=== PATIENT | female | born 1950 | race Caucasian/White ===

== ENCOUNTER 2017-06-28 11:55 | Observation (INO) | payer OTHER ==
[~2017-06-28] VITALS: Ht 162.6 cm; Wt 81.8 kg
[~2017-06-28 11:55] MED LIST: ANAS1TAB PO; CITRTAB13; MULT-135 PO; MULT1TAB46; PROP80TA PO; RANI150C PO; SIMV40TA PO; SUMA50TA2 PO; VENL150C39 PO
--- NOTE | 2017-06-28 13:10 | PD ---
HPI Chief Complaint: dizziness Time Seen by Provider: 13:07 Travel History International Travel<30 days: No Contact w/Intl Traveler<30days: No Traveled to known affect area: No History of Present Illness HPI 67-year-old female with history of headache, occipital neuralgia, or thyroidectomy, hypertension, "fast heart rate", presents to emergency department for evaluation following a near syncopal episode while at the primary care provider's office. She was being seen there for evaluation of left lower extremity pain. Outpatient ultrasound and x-ray was recommended. While TORIN Domingo was with the patient, patient became acutely diaphoretic and lids advised to come to the emergency department. When the patient got up to leave and come by private vehicle, she nearly syncopized. She did not completely lose consciousness. She was put on the stretcher and [facility] was called. Patient states that she drank juice and coffee this morning and took a Lortab because she knew she was going to be up walking on her left lower extremity. She states she has taken Lortab in the past and this is never affected her this way. She denied chest pain or tightness during it. She states she did feel little bit of a palpitation but it resolved prior to the episode. She has no other symptoms to report. Her museum guide is Dr. Herrera who follows her for her "fast heart rate." [facility]LY [facility] Past Medical History Cardiovascular Problems: Yes (high cholesterol) Diminished Hearing: No Gout: Yes Immunizations Current: Yes Thyroid Disease: Yes Menopausal: Yes Past Surgical History Other Surgery: Yes (PARATHYROID SX IN DEC 2014) Social History Alcohol Use: Yes (5x weekly) Tobacco Use: No Substance Use: No Allergies-Medications (Allergen,Severity, Reaction): Coded Allergies: No Known Allergies (Unverified , 06/28/17) Reported Meds & Prescriptions Reported Meds & Active Scripts Active Simvastatin 40 Mg Tab 40 Mg PO HS Ranitidine (Ranitidine HCl) 150 Mg Cap 150 Mg PO DAILY Venlafaxine ER 24 HR (Venlafaxine HCl) 150 Mg Cap 150 Mg PO DAILY Reported Multi Vitamin Daily (Multiple Vitamin) 1 Tab Tab Anastrozole 1 Mg Tab 1 Mg PO DAILY Citracal Plus (Multiple Minerals W/ Vitamins) 1 Tab Tab Sumatriptan (Sumatriptan Succinate) 50 Mg Tab 50 Mg PO ONCE PRN If a satisfactory response has not been obtained at 2 hours, a second dose may be administered Propranolol (Propranolol HCl) 80 Mg Tab 80 Mg PO Q12HR Review of Systems Except as stated in HPI: all other systems reviewed are Neg Physical Exam Narrative GENERAL: Well-nourished female patient, in no acute distress SKIN: Focused skin assessment warm/dry. Scattered scabbed lesions with mild erythematous bases. No drainage. No significant edema. HEAD: Atraumatic. Normocephalic. EYES: Pupils equal and round. No scleral icterus. No injection or drainage. ENT: No nasal bleeding or discharge. Mucous membranes pink and moist. NECK: Trachea midline. No JVD. CARDIOVASCULAR: Regular rate and rhythm. RESPIRATORY: No accessory muscle use. Clear to auscultation. Breath sounds equal bilaterally. GASTROINTESTINAL: Abdomen soft, non-tender, nondistended. Hepatic and splenic margins not palpable. MUSCULOSKELETAL: No obvious deformities. No clubbing. No cyanosis. No edema. NEUROLOGICAL: Awake and alert. No obvious cranial nerve deficits. Motor grossly within normal limits. Normal speech. PSYCHIATRIC: Appropriate mood and affect; insight and judgment normal. Data Data Orders Orders Electrocardiogram (06/28/17 13:13) Basic Metabolic Panel (Bmp) (06/28/17 13:13) Complete Blood Count With Diff (06/28/17 13:13) Ckmb (Isoenzyme) Profile (06/28/17 13:13) Troponin I (06/28/17 13:13) Act Partial Throm Time (Ptt) (06/28/17 13:13) Prothrombin Time / Inr (Pt) (06/28/17 13:13) Urinalysis - C+S If Indicated (06/28/17 13:13) Chest, Single Ap (06/28/17 13:13) Ecg Monitoring (06/28/17 13:13) Iv Access Insert/Monitor (06/28/17 13:13) Oximetry (06/28/17 13:13) Sodium Chloride 0.9% Flush (Ns Flush) (06/28/17 13:15) Sodium Chlor 0.9% 1000 Ml Inj (Ns 1000 M (06/28/17 13:13) Us Leg Venous Doppler (06/28/17 ) Urine Culture (06/28/17 14:05) Admit Order (Ed Use Only) (06/28/17 16:04) Ceftriaxone Inj (Rocephin Inj) (06/28/17 16:15) Labs Laboratory Tests Test 06/28/17 13:50 06/28/17 13:55 06/28/17 14:05 White Blood Count 8.6 TH/MM3 Red Blood Count 3.98 MIL/MM3 Hemoglobin 11.9 GM/DL Hematocrit 36.8 % Mean Corpuscular Volume 92.5 FL Mean Corpuscular Hemoglobin 29.8 PG Mean Corpuscular Hemoglobin Concent 32.2 % Red Cell Distribution Width 13.1 % Platelet Count 282 TH/MM3 Mean Platelet Volume 8.4 FL Neutrophils (%) (Auto) 74.3 % Lymphocytes (%) (Auto) 19.7 % Monocytes (%) (Auto) 4.5 % Eosinophils (%) (Auto) 1.1 % Basophils (%) (Auto) 0.4 % Neutrophils # (Auto) 6.4 TH/MM3 Lymphocytes # (Auto) 1.7 TH/MM3 Monocytes # (Auto) 0.4 TH/MM3 Eosinophils # (Auto) 0.1 TH/MM3 Basophils # (Auto) 0.0 TH/MM3 CBC Comment DIFF FINAL Differential Comment Blood Urea Nitrogen 15 MG/DL Creatinine 1.04 MG/DL Random Glucose 100 MG/DL Calcium Level 8.5 MG/DL Sodium Level 141 MEQ/L Potassium Level 3.9 MEQ/L Chloride Level 108 MEQ/L Carbon Dioxide Level 26.7 MEQ/L Anion Gap 6 MEQ/L Estimat Glomerular Filtration Rate 53 ML/MIN Total Creatine Kinase 57 U/L Troponin I LESS THAN 0.02 NG/ML Prothrombin Time 10.7 SEC Prothromb Time International Ratio 1.0 RATIO Activated Partial Thromboplast Time 24.0 SEC Urine Color YELLOW Urine Turbidity HAZY Urine pH 7.5 Urine Specific [place] 1.012 Urine Protein NEG mg/dL Urine Glucose (UA) NEG mg/dL Urine Ketones NEG mg/dL Urine Occult Blood NEG Urine Nitrite POS Urine Bilirubin NEG Urine Urobilinogen LESS THAN 2.0 MG/DL Urine Leukocyte Esterase MOD Urine RBC LESS THAN 1 /hpf Urine WBC 7 /hpf Urine Amorphous Sediment FEW Urine Bacteria MANY /hpf Microscopic Urinalysis Comment CULTURE INDICATED MDM Medical Decision Making Medical Screen Exam Complete: Yes Emergency Medical Condition: Yes Medical Record Reviewed: Yes Differential Diagnosis Syncope versus near-syncope versus medication side effect versus electrolyte abnormality versus arrhythmia Narrative Course 67-year-old female presents to emergency department for evaluation. Patient appears without distress. She is still mildly diaphoretic. Her vital signs are stable. She is not having chest pain or tightness. Laboratory Tests Test 06/28/17 13:50 06/28/17 13:55 06/28/17 14:05 White Blood Count 8.6 TH/MM3 Red Blood Count 3.98 MIL/MM3 Hemoglobin 11.9 GM/DL Hematocrit 36.8 % Mean Corpuscular Volume 92.5 FL Mean Corpuscular Hemoglobin 29.8 PG Mean Corpuscular Hemoglobin Concent 32.2 % Red Cell Distribution Width 13.1 % Platelet Count 282 TH/MM3 Mean Platelet Volume 8.4 FL Neutrophils (%) (Auto) 74.3 % Lymphocytes (%) (Auto) 19.7 % Monocytes (%) (Auto) 4.5 % Eosinophils (%) (Auto) 1.1 % Basophils (%) (Auto) 0.4 % Neutrophils # (Auto) 6.4 TH/MM3 Lymphocytes # (Auto) 1.7 TH/MM3 Monocytes # (Auto) 0.4 TH/MM3 Eosinophils # (Auto) 0.1 TH/MM3 Basophils # (Auto) 0.0 TH/MM3 CBC Comment DIFF FINAL Differential Comment Blood Urea Nitrogen 15 MG/DL Creatinine 1.04 MG/DL Random Glucose 100 MG/DL Calcium Level 8.5 MG/DL Sodium Level 141 MEQ/L Potassium Level 3.9 MEQ/L Chloride Level 108 MEQ/L Carbon Dioxide Level 26.7 MEQ/L Anion Gap 6 MEQ/L Estimat Glomerular Filtration Rate 53 ML/MIN Total Creatine Kinase 57 U/L Troponin I LESS THAN 0.02 NG/ML Prothrombin Time 10.7 SEC Prothromb Time International Ratio 1.0 RATIO Activated Partial Thromboplast Time 24.0 SEC Urine Color YELLOW Urine Turbidity HAZY Urine pH 7.5 Urine Specific [place] 1.012 Urine Protein NEG mg/dL Urine Glucose (UA) NEG mg/dL Urine Ketones NEG mg/dL Urine Occult Blood NEG Urine Nitrite POS Urine Bilirubin NEG Urine Urobilinogen LESS THAN 2.0 MG/DL Urine Leukocyte Esterase MOD Urine RBC LESS THAN 1 /hpf Urine WBC 7 /hpf Urine Amorphous Sediment FEW Urine Bacteria MANY /hpf Microscopic Urinalysis Comment CULTURE INDICATED Last Impressions Chest X-Ray 06/28/17 1313 Signed Impressions: Service Date/Time: June 13:26 - CONCLUSION: 1. Hiatal hernia. Exam is otherwise unremarkable. Prasanna Correia MD Lower Extremity Ultrasound 06/28/17 0000 Signed Impressions: Service Date/Time: June 14:33 - CONCLUSION: 1. No DVT identified. Prasanna Correia MD Review the lab findings and radiology images. Patient will be started on oral antibiotics. I discussed the patient with my attending. I also discussed patient with lives to assess her today. Did not see with the patient has had cardiac workup here. She does not recall ultrasound of her carotids, echocardiogram, or any significant cardiac workup. It is in the patient's best interest to be admitted observation for further evaluation of these symptoms. Diagnosis Primary Impression: Near syncope Additional Impressions: UTI (urinary tract infection) Qualified Codes: N39.0 - Urinary tract infection, site not specified; R31.9 - Hematuria, unspecified Skin lesions Admitting Information Admitting Physician Requests: Observation Condition: Stable Fabiana Berger Jun 28, 2017 13:10
[2017-06-28] MEDS ORDERED: SODIUM CHLOR 0.9% 1000 ML INJ 1,000 ML IV ONE (13:13)
[2017-06-28] MEDS ORDERED: SODIUM CHLORIDE 0.9% FLUSH 10 ML FLUSH IVF PRN (13:15)
--- NOTE | 2017-06-28 13:48 | RADRPT ---
EXAM DATE/TIME: 06/28/2017 13:26 [facility] COMPARISON: FOOT RIGHT COMPLETE ([id number]), September 28, 2015, 3:58. INDICATIONS : Shortness of breath. MEDICAL HISTORY : Hypercholesterolemia. Carcinoma, breast. SURGICAL HISTORY : Mastectomy, bilateral. ENCOUNTER: Initial ACUITY: 2 days PAIN SCORE: 0/10 LOCATION: Bilateral chest FINDINGS: A single view of the chest demonstrates the lungs to be symmetrically aerated without evidence of mas s, infiltrate or effusion. The examination demonstrates a small hiatal hernia. The cardiomediastinal contours are unremarkable. Osseous structures are intact. CONCLUSION: 1. Hiatal hernia. Exam is otherwise unremarkable. Prasanna Correia MD on June 28, 2017 at 13:44 Board Certified Radiologist. This report was verified electronically.
[2017-06-28 14:13] LABS: AUTOMATED NEUTROPHIL # 6.4 TH/MM3 (1.8-7.7); BASOPHIL % 0.4 % (0.0-2.0); EOSINOPHIL # 0.1 TH/MM3 (0-0.4); EOSINOPHIL % 1.1 % (0.0-4.0); HEMATOCRIT 36.8 % (35.0-46.0); HEMO FLAGS DIFF FINAL; LYMPH % 19.7 % (9.0-44.0); LYMPHOCYTE # 1.7 TH/MM3 (1.0-4.8); MEAN CELL VOLUME 92.5 FL (80.0-100.0); MEAN CORPUSCULAR HEMOGLOBIN 29.8 PG (27.0-34.0); MEAN CORPUSCULAR HGB CONC 32.2 % (32.0-36.0); MONO % 4.5 % (0.0-8.0); NEUT % 74.3 % (16.0-70.0); PLATELET COUNT 282 TH/MM3 (150-450); RED BLOOD COUNT 3.98 MIL/MM3 (4.00-5.30); RED CELL DISTRIBUTION WIDTH 13.1 % (11.6-17.2); WHITE BLOOD COUNT 8.6 TH/MM3 (4.0-11.0)
[2017-06-28 14:17] LABS: BACTERIA, URINE MANY /hpf; BLOOD, URINE NEG (NEG); GLUCOSE,URINE NEG (NEG); KETONE, URINE NEG (NEG); NITRITE,URINE POS (NEG); PH, URINE 7.5 (5.0-8.5); URINE COLOR YELLOW (YELLW/STRAW)
[2017-06-28 14:18] LABS: COMMENT (UR) CULTURE INDICATED; CULTURE IF INDICATED CULTURE INDICATED
[2017-06-28 14:28] LABS: PROTHROMBIN TIME - PATIENT 10.7 SEC (9.8-11.6)
[2017-06-28 14:38] LABS: ANION GAP 6 MEQ/L (5-15); BICARBONATE 26.7 MEQ/L (21.0-32.0); BLOOD UREA NITROGEN 15 MG/DL (7-18); CHLORIDE 108 MEQ/L (98-107); GLOMERULAR FILTRATION RATE 53 ML/MIN (>89); POTASSIUM 3.9 MEQ/L (3.5-5.1); SODIUM (NA) 141 MEQ/L (136-145)
[2017-06-28 14:52] LABS: CREATINE KINASE 57 U/L (26-192)
--- NOTE | 2017-06-28 15:14 | RADRPT ---
EXAM DATE/TIME: 06/28/2017 14:33 [facility] COMPARISON: No previous studies available for comparison. INDICATIONS : Left leg swelling. MEDICAL HISTORY : Hypercholesterolemia. Thyroid disease. Renal calculi. Gout. Alcohol use. Occipital neuralgia. SURGICAL HISTORY : Mastectomy. Left breast lumpectomy. Lithotripsy. Breast biopsy x 2. Sinus septoplasty. Parathyroid tu mor removal. ENCOUNTER: Initial ACUITY: 1 day PAIN SCORE: 3/10 LOCATION: Left leg. TECHNIQUE: Venous ultrasound of the leg was performed from the inguinal ligament to the proximal calf. Real-marisela e, color Doppler and spectral tracing, compression and augmentation techniques were used. FINDINGS: There is normal compressibility of the deep venous system from the inguinal region to the proximal ca lf. No echogenic clot is seen in the lumen of the common femoral, femoral, popliteal, and posterior tibial veins. There is a normal response of the venous system to proximal and distal augmentation an d respiration. CONCLUSION: 1. No DVT identified. Prasanna Correia MD on June 28, 2017 at 15:12 Board Certified Radiologist. This report was verified electronically.
[2017-06-28] MEDS ORDERED: SODIUM CHLORIDE 0.9% FLUSH 10 ML FLUSH IV FLUSH PRN ×2 (16:15→17:15)
[2017-06-28] MEDS ORDERED: cefTRIAXone INJ 1,000 MG in SODIUM CHLORIDE 0.9% INJ 100 ML IV ONE (16:15)
[2017-06-28 16:34] VITALS: BP 109/76; PULSE 66; RESP 20
--- NOTE | 2017-06-28 17:18 | HHI.HP ---
[facility] Mirian Garcia MD Admission Diagnosis NEAR SYNCOPE; UTI Diagnoses: Chief Complaint: Near syncope Travel History International Travel<30 Days: No Contact w/Intl Traveler <30 Da: No Traveled to Known Affected Are: No History of Present Illness 67-year-old female with past medical history of palpitations, breast cancer, HLD , migraines, depression, GERD who presented after a near syncopal episode. The patient states that she's been having issues with left knee pain. She is going to see her PCP today and while at her PCPs office she had a near-syncopal episode. She was sitting at her PCPs office she began having sweating, diaphoresis, palpitations. She laid down and began to feel better, but whenever she sat up she felt faint like she was going to pass out. She denies any lightheadedness, dizziness, chest pain, shortness of breath. She's had some sinus congestion and reflux, however denies any recent illness, fever, chills, cough, nausea, vomiting, diarrhea. She denies any recent medication changes. She does have a history of palpitations and has had a Holter monitor in the past with Dr. Herrera, however palpitations have been well-managed since being started on propranolol sometime ago. She denies any dysuria or urinary frequency. Review of Systems Except as stated in HPI: all other systems reviewed are Neg Past Family Social History Past Medical History History of breast cancer Hyperlipidemia History of palpitations Migraines Depression GERD Past Surgical History EGD/colonoscopy Multiple breast surgeries; biopsies, lumpectomy, and bilateral mastectomy Parathyroid tumor removal Reported Medications Reported Meds & Active Scripts Active Simvastatin 40 Mg Tab 40 Mg PO HS Ranitidine (Ranitidine HCl) 150 Mg Cap 150 Mg PO DAILY Venlafaxine ER 24 HR (Venlafaxine HCl) 150 Mg Cap 150 Mg PO DAILY Reported Multi Vitamin Daily (Multiple Vitamin) 1 Tab Tab Anastrozole 1 Mg Tab 1 Mg PO DAILY Citracal Plus (Multiple Minerals W/ Vitamins) 1 Tab Tab Sumatriptan (Sumatriptan Succinate) 50 Mg Tab 50 Mg PO ONCE PRN If a satisfactory response has not been obtained at 2 hours, a second dose may be administered Propranolol (Propranolol HCl) 80 Mg Tab 80 Mg PO Q12HR Allergies: Coded Allergies: No Known Allergies (Unverified , 06/28/17) Active Ordered Medications Current Medications Medications (Trade) Dose Ordered Sig/Brigette Route Start Time Stop Time Status Last Admin (NS Flush) 2 ml UNSCH PRN IV FLUSH 06/28/17 16:15 (NS Flush) 2 ml BID IV FLUSH 06/28/17 21:00 (Arimidex) 1 mg DAILY PO 06/29/17 09:00 UNV (Inderal) 80 mg Q12HR PO 06/28/17 21:00 UNV Non-Formulary Medication 150 mg DAILY PO 06/29/17 09:00 UNV Non-Formulary Medication 40 mg HS PO 06/28/17 21:00 UNV Sodium Chloride 1,000 ml @ 100 mls/hr Q10H IV 06/28/17 17:08 UNV (NS Flush) 2 ml UNSCH PRN IV FLUSH 06/28/17 17:15 UNV (NS Flush) 2 ml BID IV FLUSH 06/28/17 21:00 UNV Family History Father of bladder cancer Mother of dementia Social History Has 3 or 4 drinks per week Denies any tobacco or drug use Physical Exam Vital Signs Vital Signs Date Time Temp Pulse Resp B/P (MAP) Pulse Ox O2 Delivery O2 Flow Rate FiO2 06/28/17 16:34 66 20 109/76 (87) Physical Exam GENERAL: Well-developed well-nourished. In no acute distress. SKIN: Warm and dry. Few diffuse erythematous papules on the extremities. HEENT: Normocephalic. Pupils equal and round. Mucous membranes pink and moist. CARDIOVASCULAR: Regular rate and rhythm. No murmur appreciated. RESPIRATORY: No accessory muscle use. Clear to auscultation. Breath sounds equal bilaterally. GASTROINTESTINAL: Abdomen soft, non-tender, nondistended. Bowel sounds x4. MUSCULOSKELETAL: No obvious deformities. Left knee with no significant swelling , tenderness, erythema, or effusion. No clubbing or cyanosis. No edema. NEUROLOGICAL: Awake and alert. No focal neurological deficits. Moves upper and lower extremities spontaneously. Normal speech. Strength 5/5. PSYCHIATRIC: Appropriate mood and affect; insight and judgment normal. Laboratory Laboratory Tests Test 06/28/17 13:50 06/28/17 13:55 06/28/17 14:05 White Blood Count 8.6 Red Blood Count 3.98 Hemoglobin 11.9 Hematocrit 36.8 Mean Corpuscular Volume 92.5 Mean Corpuscular Hemoglobin 29.8 Mean Corpuscular Hemoglobin Concent 32.2 Red Cell Distribution Width 13.1 Platelet Count 282 Mean Platelet Volume 8.4 Neutrophils (%) (Auto) 74.3 Lymphocytes (%) (Auto) 19.7 Monocytes (%) (Auto) 4.5 Eosinophils (%) (Auto) 1.1 Basophils (%) (Auto) 0.4 Neutrophils # (Auto) 6.4 Lymphocytes # (Auto) 1.7 Monocytes # (Auto) 0.4 Eosinophils # (Auto) 0.1 Basophils # (Auto) 0.0 CBC Comment DIFF FINAL Differential Comment Blood Urea Nitrogen 15 Creatinine 1.04 Random Glucose 100 Calcium Level 8.5 Sodium Level 141 Potassium Level 3.9 Chloride Level 108 Carbon Dioxide Level 26.7 Anion Gap 6 Estimat Glomerular Filtration Rate 53 Total Creatine Kinase 57 Troponin I LESS THAN 0.02 Prothrombin Time 10.7 Prothromb Time International Ratio 1.0 Activated Partial Thromboplast Time 24.0 Urine Color YELLOW Urine Turbidity HAZY Urine pH 7.5 Urine Specific [place] 1.012 Urine Protein NEG Urine Glucose (UA) NEG Urine Ketones NEG Urine Occult Blood NEG Urine Nitrite POS Urine Bilirubin NEG Urine Urobilinogen LESS THAN 2.0 Urine Leukocyte Esterase MOD Urine RBC LESS THAN 1 Urine WBC 7 Urine Amorphous Sediment FEW Urine Bacteria MANY Microscopic Urinalysis Comment CULTURE INDICATED Date/Time Source Procedure Growth Status 06/28/17 14:05 Urine Clean Catch Urine Culture Pending Received Result Diagram: 06/28/17 1350 06/28/17 1350 Imaging Last Impressions Chest X-Ray 06/28/17 1313 Signed Impressions: Service Date/Time: June 13:26 - CONCLUSION: 1. Hiatal hernia. Exam is otherwise unremarkable. Prasanna Correia MD Lower Extremity Ultrasound 06/28/17 0000 Signed Impressions: Service Date/Time: June 14:33 - CONCLUSION: 1. No DVT identified. MD Cyndie Bacai VTE Risk Assessment Caprini VTE Risk Assessment: Mod/High Risk (score >= 2) Caprini Risk Assessment Model Point Value = 1 Point Value = 2 Point Value = 3 Point Value = 5 Age 41-60 Minor surgery BMI > 25 kg/m2 Swollen legs Varicose veins or History of unexplained or recurrent spontaneous Oral contraceptives or hormone replacement Sepsis (< 1 month) Serious lung disease, including pneumonia (< 1 month) Abnormal pulmonary function Acute myocardial infarction Congestive heart failure (< 1 month) History of inflammatory bowel disease Medical patient at bed rest Age 61-74 Arthroscopic surgery Major open surgery (> 45 min) Laparoscopic surgery (> 45 min) Malignancy Confined to bed (> 72 hours) Immobilizing plaster cast Central venous access Age >= 75 History of VTE Family history of VTE Factor V Leiden Prothrombin [id number] Lupus anticoagulant Anticardiolipin antibodies Elevated serum homocysteine Heparin-induced thrombocytopenia Other congenital or acquired thrombophilia Stroke (< 1 month) Elective arthroplasty Hip, pelvis, or leg fracture Acute spinal cord injury (< 1 month) Prophylaxis Regimen Total Risk Factor Score Risk Level Prophylaxis Regimen 0-1 Low Early ambulation 2 Moderate Order ONE of the following: *Sequential Compression Device (SCD) *Heparin 5000 units SQ BID 3-4 Higher Order ONE of the following medications: *Heparin 5000 units SQ TID *Enoxaparin/Lovenox 40 mg SQ daily (WT < 150 kg, CrCl > 30 mL/min) *Enoxaparin/Lovenox 30 mg SQ daily (WT < 150 kg, CrCl > 10-29 mL/min) *Enoxaparin/Lovenox 30 mg SQ BID (WT < 150 kg, CrCl > 30 mL/min) AND/OR *Sequential Compression Device (SCD) 5 or more Highest Order ONE of the following medications: *Heparin 5000 units SQ TID (Preferred with Epidurals) *Enoxaparin/Lovenox 40 mg SQ daily (WT < 150 kg, CrCl > 30 mL/min) *Enoxaparin/Lovenox 30 mg SQ daily (WT < 150 kg, CrCl > 10-29 mL/min) *Enoxaparin/Lovenox 30 mg SQ BID (WT < 150 kg, CrCl > 30 mL/min) AND *Sequential Compression Device (SCD) Assessment and Plan Assessment and Plan 67-year-old female with past medical history of palpitations, breast cancer, HLD , migraines, depression, GERD who presented after a near syncopal episode Near syncope: Episode of sweating, diaphoresis, palpitations at PCPs office. Reviewed: EKG with RBBB and no significant ST or T-wave changes, rate 56. Initial troponin within normal limits. Creatinine 1.04, no previous labs for comparison. UA with evidence of UTI. Afebrile with no leukocytosis. -Monitor on telemetry. Consider Holter monitor at discharge and outpatient cardiology follow-up if no significant arrhythmias seen. Cardiology consult if significant arrhythmias are seen. -Check orthostatics -Trend troponins -IVF -Treat UTI as below Palpitations: Episode as above is not similar to previous palpitations. -Check TSH -Continue propranolol UTI: UA with evidence of UTI. -Continue empiric IV Rocephin and follow-up urine culture Dehydration: Creatinine 1.04, no previous labs for comparison. Possible YUMIKO. -IVF and follow-up BMP. Left knee pain: Chronic. Ultrasound negative for DVT. -Continue outpatient orthopedic follow-up next week Other chronic medical conditions include breast cancer, HLD, GERD, depression: Stable at this time and will continue home medications as indicated. DVT prophylaxis: SCDs Discussed Condition With Patient with at bedside, ED staff Attending Statement Patient denies any active dizziness at this time. Reports previously with slightly diaphoretic. No complaint of chest pain or shortness of breath. No significant dysuria frequency urgency. Will admit patient for near syncope and continue monitoring on telemetry. Patient has seen Dr. Herrera the past and will refer her to follow-up with her threat monitoring analyst. Obtain orthostatic blood pressure the morning. Encourage by mouth hydration. The exam, history, and the medical decision making described in the above note were completed with the assistance of the dictating practitioner. I reviewed and agree with the findings presented. I attest that I had a face-to face encounter with the patient on the same day and personally performed and documented my assessment and findings in the medical record. Nestor Perez Jun 28, 2017 17:18 Faviola Fowler MD Jun 28, 2017 19:44
[2017-06-28 17:43] VITALS: BP_SYST 112; BP_SYST 127; BP_DIAS 62; BP_DIAS 76; PULSE 79; RESP 18; TEMP 98.5; O2SAT 98
[2017-06-28 20:06] VITALS: BP_SYST 115; BP_SYST 125; BP_DIAS 63; BP_DIAS 65; PULSE 81; RESP 20; TEMP 98.5; O2SAT 96
[2017-06-28] MEDS: SODIUM CHLORIDE 0.9% FLUSH 10 ML FLUSH IV FLUSH SCH (20:20)
[2017-06-28] MEDS: PROPRANOLOL HCL 80 MG TAB PO SCH (20:21)
[2017-06-28] MEDS: SODIUM CHLOR 0.9% 1000 ML INJ 1,000 ML IV SCH (20:21)
[2017-06-28] MEDS: CEFUROXIME AXETIL 500 MG TAB PO SCH (20:22)
[2017-06-28 20:30] VITALS: PULSE 80; O2SAT 99
[2017-06-28] MEDS ORDERED: PRAVASTATIN SOD 80 MG TAB PO SCH (21:00)
[2017-06-28] MEDS ORDERED: SODIUM CHLORIDE 0.9% FLUSH 10 ML FLUSH IV FLUSH SCH (21:00)
[2017-06-29] VITALS (7 sets, daily range): BP systolic 105–125; BP diastolic 55–82; PULSE 67–80; RESP 16–20; TEMP 97.6–98.1; O2SAT 94–97
[2017-06-29 02:48] LABS: AUTOMATED NEUTROPHIL # 4.3 TH/MM3 (1.8-7.7); BASOPHIL % 0.5 % (0.0-2.0); EOSINOPHIL # 0.1 TH/MM3 (0-0.4); EOSINOPHIL % 1.9 % (0.0-4.0); HEMATOCRIT 32.5 % (35.0-46.0); HEMO FLAGS DIFF FINAL; LYMPH % 30.1 % (9.0-44.0); LYMPHOCYTE # 2.3 TH/MM3 (1.0-4.8); MEAN CELL VOLUME 91.8 FL (80.0-100.0); MEAN CORPUSCULAR HEMOGLOBIN 29.4 PG (27.0-34.0); MONO % 11.8 % (0.0-8.0); NEUT % 55.7 % (16.0-70.0); PLATELET COUNT 240 TH/MM3 (150-450); RED BLOOD COUNT 3.54 MIL/MM3 (4.00-5.30); RED CELL DISTRIBUTION WIDTH 13.2 % (11.6-17.2); WHITE BLOOD COUNT 7.7 TH/MM3 (4.0-11.0)
[2017-06-29 03:08] LABS: ANION GAP 8 MEQ/L (5-15); BLOOD UREA NITROGEN 18 MG/DL (7-18); CHLORIDE 111 MEQ/L (98-107); GLOMERULAR FILTRATION RATE 59 ML/MIN (>89); POTASSIUM 3.7 MEQ/L (3.5-5.1); SODIUM (NA) 145 MEQ/L (136-145)
[2017-06-29] MEDS: SODIUM CHLOR 0.9% 1000 ML INJ 1,000 ML IV SCH ×2 (05:59→12:55)
[2017-06-29] MEDS: SODIUM CHLORIDE 0.9% FLUSH 10 ML FLUSH IV FLUSH SCH (08:00)
[2017-06-29] MEDS: CEFUROXIME AXETIL 500 MG TAB PO SCH (08:01)
[2017-06-29] MEDS: PROPRANOLOL HCL 80 MG TAB PO SCH (08:08)
[2017-06-29] MEDS ORDERED: FAMOTIDINE 20 MG TAB PO SCH (09:00)
[2017-06-29] MEDS ORDERED: ANASTROZOLE 1 MG TAB PO SCH (09:00)
[2017-06-29] MEDS ORDERED: VENLAFAXINE HCL XR 75 MG CAP PO SCH (09:00)
--- NOTE | 2017-06-29 11:14 | EKG ---
Date Performed: 06/28/2017 Time Performed: 13:11:37 PTAGE: 67 years EKG: SINUS BRADYCARDIA BORDERLINE ECG INTERPRETATION BASED ON A DEFAULT AGE OF 40 YEARS NO PREVIOUS TRACING DOCTOR: Conrad Sullivan Interpretating Date/Time 06/29/2017 11:12:59
[2017-06-29] MEDS ORDERED: NITROFURANTOIN MONOHYD MACROCR 100 MG CAP PO SCH (13:00)
--- NOTE | 2017-06-29 13:05 | HHI.PR ---
Subjective Remarks Follow-up for her syncopal episode. The patient then did well overnight. She denies any further episodes. She denies any chest pain, shortness of breath, palpitations, lightheadedness, dizziness. She has been able to ambulate, but with her knee pain, she is requesting a walker. Telemetry unremarkable. The patient is happy to go home today and follow-up with her PCP next week. Objective Vitals Vital Signs Date Time Temp Pulse Resp B/P (MAP) Pulse Ox O2 Delivery O2 Flow Rate FiO2 06/29/17 12:09 97.6 80 16 122/68 (86) 97 06/29/17 08:11 97.6 70 16 122/60 (80) 97 124/78 (93) 125/82 (96) 06/29/17 08:00 73 06/29/17 04:05 67 06/29/17 04:02 97.9 69 18 105/55 (72) 94 06/29/17 00:42 98.1 73 20 108/62 (77) 96 06/29/17 00:35 69 06/28/17 20:30 99 06/28/17 20:30 80 06/28/17 20:06 98.5 81 20 125/65 (85) 96 115/63 (80) 06/28/17 18:07 21 06/28/17 17:43 98.5 79 18 127/76 (93) 98 112/62 (79) 06/28/17 16:34 66 20 109/76 (87) I/O 06/28/17 06/28/17 06/28/17 06/29/17 06/29/17 06/29/17 07:00 15:00 23:00 07:00 15:00 23:00 Intake Total 981 ml Balance 981 ml Intake IV Total 981 ml Result Diagram: 06/29/17 0202 06/29/17 0202 Imaging Last Impressions Chest X-Ray 06/28/17 1313 Signed Impressions: Service Date/Time: June 13:26 - CONCLUSION: 1. Hiatal hernia. Exam is otherwise unremarkable. Prasanna Correia MD Lower Extremity Ultrasound 06/28/17 0000 Signed Impressions: Service Date/Time: June 14:33 - CONCLUSION: 1. No DVT identified. Prasanna Correia MD Objective Remarks GENERAL: Well-developed well-nourished. In no acute distress. SKIN: Warm and dry. Few diffuse erythematous papules on the extremities. HEENT: Normocephalic. Pupils equal and round. Mucous membranes pink and moist. CARDIOVASCULAR: Regular rate and rhythm. No murmur appreciated. RESPIRATORY: No accessory muscle use. Clear to auscultation. Breath sounds equal bilaterally. GASTROINTESTINAL: Abdomen soft, non-tender, nondistended. Bowel sounds x4. MUSCULOSKELETAL: No obvious deformities. No clubbing or cyanosis. No edema. NEUROLOGICAL: Awake and alert. No focal neurological deficits. Moves upper and lower extremities spontaneously. Normal speech. PSYCHIATRIC: Appropriate mood and affect; insight and judgment normal. A/P Assessment and Plan 67-year-old female with past medical history of palpitations, breast cancer, HLD , migraines, depression, GERD who presented after a near syncopal episode Near syncope: Episode of sweating, diaphoresis, palpitations at PCPs office. Suspect symptoms secondary to dehydration and transient orthostasis. Reviewed: EKG with RBBB and no significant ST or T-wave changes, rate 56. Troponin negative 3.. Creatinine 1.04, no previous labs for comparison. UA with evidence of UTI. Afebrile with no leukocytosis. Orthostatic blood pressures yesterday were positive, but now patient is no longer orthostatic after IVF. -Monitor on telemetry. Holter at discharge and outpatient cardiology follow- up. -Improved Palpitations: Episode as above is not similar to previous palpitations. TSH within normal limits. Reviewed telemetry overnight which showed no significant abnormalities. -Continue propranolol -Place Holter and follow with cardiology as outpatient for results UTI: UA with evidence of UTI. -Given IV Rocephin 1 and started on oral cefuroxime -Urine culture pending -Continue on cefuroxime 3 days and follow up with PCP Dehydration/YUMIKO: Creatinine 1.04, no previous labs for comparison. Creatinine improved to 0.94 overnight with IVF. -Improved Left knee pain: Chronic. Ultrasound negative for DVT. Ambulatory. -Continue outpatient orthopedic follow-up next week -Walker Other chronic medical conditions include breast cancer, HLD, GERD, depression: Stable at this time and will continue home medications as indicated. DVT prophylaxis: SCDs Discharge Planning Discharge patient to home Condition on discharge: Improved Heart healthy Diet as tolerated Regular activity Rx written: sanya Daniel Follow-up with primary care physician and cardiology Nestor Perez Jun 29, 2017 13:05
[2017-06-29] MEDS ORDERED: CEFU1TAB20 PO (13:09)
[2017-06-29] MEDS ORDERED: GETGO ROLLING W1 MI1 (13:10)
[2017-06-29] MEDS ORDERED: cefTRIAXone INJ 1,000 MG in SODIUM CHLORIDE 0.9% INJ 100 ML IV SCH (16:00)
--- NOTE | 2017-07-02 16:03 | HM ---
Date Performed: 06/29/2017 Time Performed: 14:22:00 HOOKUP DATE: 06/29/17 02:22:00 PM Fri ANALYSIS START TIME: 06/29/2017 2:27:00 PM ANALYSIS END TIME: 06/30/2017 2:07:35 PM PATIENT AGE: 67 PATIENT HEIGHT: 64 PATIENT WEIGHT: 180 DRUG LIST: G76/DISCHARGED PATIENT DIAGNOSIS: NEAR SYNCOPE TEST NARRATIVE: The patient's average heart rate was 76 BPM. No episodes of tachycardia wer e noted. No episodes of bradycardia were noted. No pauses exceeding 2.0 seconds were noted. 3 ventricular ectopics, which represented < 1% of the total beat count, were noted. The highest vent ricular ectopic frequency occurred from 07:00 AM to 08:00 AM Sat. During this time 2 VE(s) occurred. Ventricular ectopics were observed as 3 isolated beat(s) only. No couplets or runs were noted. 9 supraventricular ectopics, which represented < 1% of the total beat count, were noted. The highes t supraventricular ectopic frequency occurred from 04:00 AM to 05:00 AM Sat. During this time 3 SVE( s) occurred. No episodes of ST depression (defined as -1.0 mm or more) were noted in channel 1. No episodes of ST depression (defined as -1.0 mm or more) were noted in channel 2. No episodes of ST depression (defined as -1.0 mm or more) were noted in channel 3. TEST INTERPRETATION: Patient was monitored for 23 hours and 41 minutes. Minimum heart rate was 5 9, maximum heart rate 106, average heart rate was 76. There were 2 PVCs and 6 PACs with one 3-beat at rial run. Conclusion Essentially unremarkable Holter monitor showing only occasional ectopy and a karina rt 3-beat atrial run without any atrial fibrillation or other sustained disrhythmia. Signed by : Jeffrey Bravo
[2017-07-03] MEDS ORDERED: VENL75TA2 PO (11:03)
[2017-07-03] MEDS ORDERED: INDO50CA PO (11:09)
[2017-07-03] MEDS ORDERED: DICL1GEL7 TOPICAL (11:09)
[2017-07-03] MEDS ORDERED: COLA100C PO (11:22)
[2017-07-24] MEDS ORDERED: ZOCO80TA PO (09:56)
[2017-07-24] MEDS ORDERED: CITA10TA4 PO (10:24)
[2017-08-08] MEDS ORDERED: CITA20TA4 PO (10:42)
[2017-08-10] MEDS ORDERED: OMEP40CA2 PO (11:54)
[2017-08-10] MEDS ORDERED: BUSP1TAB PO (11:54)
[2017-08-10] MEDS ORDERED: COLA100C PO (11:54)
[2017-08-10] MEDS ORDERED: INFL1INJ52 IM (12:06)
[2017-08-10] MEDS ORDERED: ZOSTINJ SQ (12:06)
[2017-08-23] MEDS ORDERED: TYLE325T PO (09:14)
== END 2017-06-29 15:09 | disposition home or self-care (01) ==
LOC: NEPC 11:55 → NEDA 16:06 → NEPGCP 17:14
PROVIDERS: ADMIT Family Medicine; ATTEND Family Medicine
DX: R55 Syncope and collapse (principal); N39.0 Urinary tract infection, site not specified; B96.20 Unspecified Escherichia coli [E. coli] as the cause of diseases classified elsewhere; E86.0 Dehydration; N17.9 Acute kidney failure, unspecified; R00.2 Palpitations; R00.1 Bradycardia, unspecified; M79.605 Pain in left leg; M79.89 Other specified soft tissue disorders; R06.02 Shortness of breath; I45.10 Unspecified right bundle-branch block; R09.81 Nasal congestion; L98.9 Disorder of the skin and subcutaneous tissue, unspecified; E78.5 Hyperlipidemia, unspecified; E78.00 Pure hypercholesterolemia, unspecified; K21.9 Gastro-esophageal reflux disease without esophagitis; E07.9 Disorder of thyroid, unspecified; K44.9 Diaphragmatic hernia without obstruction or gangrene; F32.9 Major depressive disorder, single episode, unspecified; G43.909 Migraine, unspecified, not intractable, without status migrainosus; M54.81 Occipital neuralgia; M25.562 Pain in left knee; G89.29 Other chronic pain; Z79.899 Other long term (current) drug therapy; Z90.13 Acquired absence of bilateral breasts and nipples; Z85.3 Personal history of malignant neoplasm of breast
CPT/HCPCS: 71010; 80048; 81001; 82550; 84443; 84484; 85025; 85610; 85730; 87077; 87086; 87186; 93005; 93225; 93226; 93971; 96361; 96365; 99285; G0378; J0696; J7030

== ENCOUNTER → 2017-08-06 | Day surgery (SDC) | payer OTHER ==
[~2017-08-06] MED LIST changes: +BUSP1TAB PO; +CITA10TA4 PO; +CITA20TA4 PO; +COLA100C PO; +DICL1GEL7 TOPICAL; +GETGO ROLLING W1 MI1; +INDO50CA PO; +INFL1INJ52 IM; -MULT-135 PO; +OMEP40CA2 PO; +PROPOFOL 200 MG/20 ML AMP IV ONE; -SIMV40TA PO; +TYLE325T PO; -VENL150C39 PO; +ZOCO80TA PO; +ZOSTINJ SQ
--- NOTE | 2017-08-06 14:47 | GIPROC ---
[facility] [address] [facility] [facility], [id number] EGD PROCEDURE REPORT EXAM DATE: 08/06/2017 PATIENT NAME: Rakel Khanna MR #: [id number] BIRTHDATE: 1950 ATTENDING: Nathalia Hilliard MD ORDER #: [id number] HOST AND HOSTESS: Keith Guerrero RN STATUS: outpatient INDICATIONS: The patient is a 67 yr old female here for an EGD due to iron deficiency anemia and occult blood positive PROCEDURE PERFORMED: EGD w/ biopsy MEDICATIONS: None and Per Anesthesia. TOPICAL ANESTHETIC: CONSENT: The patient understands the risks and benefits of the procedure and understands that these risks include, but are not limited to: sedation, allergic reaction, infection, perforation and/or bleeding. Alternative means of evaluation and treatment include, among others: physical exam, x-rays, and/or surgical intervention. The patient elects to proceed with this endoscopic procedure. medical equipment was checked for proper function. Hand hygiene and appropriate measures for infection prevention was taken. After the risks, benefits and alternatives of the procedure were thoroughly explained, Informed consent was verified, confirmed and timeout was successfully executed by the treatment team. The patient was anesthetized with topical anesthesia and the EG-[id number] ([id number]) endoscope was introduced through the mouth and advanced to the second portion of the duodenum. Retroflexed views revealed a hiatal hernia The gastroscope was then slowly withdrawn and removed. ESOPHAGUS: There was LA Class A esophagitis noted. A biopsy was performed using cold forceps. Sample sent for histology. STOMACH: There was mild gastritis in the gastric antrum. A biopsy was performed using cold forceps. Sample sent for histology. DUODENUM: The duodenal mucosa appeared normal in the bulb and second portion of the duodenum. ADVERSE EVENTS: There were no complications. IMPRESSIONS: 1. There was LA Class A esophagitis noted; biopsy was performed 2. There was mild gastritis in the gastric antrum; biopsy was performed 3. Normal duodenal mucosa in the bulb and second portion of the duodenum 4. Retroflexed views revealed a hiatal hernia RECOMMENDATIONS: 1. Await biopsy results. Biopsy results will not be ready for 7-10 days. If you don't hear from us in two weeks, call our office for biopsy results. 2. Anti-reflux regimen 3. Continue PPI 4. Avoid NSAIDS 5. Follow-up: GI clinic 2 week(s) PATIENT CONDITION: stable DISPOSITION: Home REPEAT EXAM: Return 1 year EGD pending biopsy results Nathlaia Hilliard MD eSigned: Nathalia Hilliard MD 08/06/2017 2:46 PM cc: Tracy Calixto PATIENT NAME: Rakel Khanna MR#: [id number]
== END | disposition home or self-care (01) ==
LOC: ESDC 12:25
PROVIDERS: ATTEND Internal Medicine Gastroenterology
DX: D50.9 Iron deficiency anemia, unspecified (principal); K92.1 Melena; K20.9 Esophagitis, unspecified; K29.70 Gastritis, unspecified, without bleeding; K44.9 Diaphragmatic hernia without obstruction or gangrene
CPT/HCPCS: 88305; 88312

== ENCOUNTER 2018-02-13 13:19 | Observation (INO) | payer OTHER ==
[~2018-02-13] VITALS: Ht 160 cm; Wt 87.0 kg
[2018-02-13] VITALS (7 sets, daily range): BP systolic 131–179; BP diastolic 74–108; PULSE 72–90; RESP 16–22; TEMP 97.6–98.2; O2SAT 95–99
[~2018-02-13 13:19] MED LIST changes: -BUSP1TAB PO; -CITA10TA4 PO; -CITA20TA4 PO; -COLA100C PO; +COLA100C5 PO; +DOXY100C PO; -INFL1INJ52 IM; -MULT1TAB46; +MULT1TAB46 PO; -PROPOFOL 200 MG/20 ML AMP IV ONE; -RANI150C PO
--- NOTE | 2018-02-13 14:58 | RADRPT ---
EXAM DATE/TIME: 02/13/2018 14:14 [facility] COMPARISON: CHEST SINGLE AP, June 28, 2017, 13:26. INDICATIONS : Chest pain in the center of patient;s chest. MEDICAL HISTORY : Hypercholesterolemia. Carcinoma, breast. SURGICAL HISTORY : Mastectomy, bilateral. ENCOUNTER: Initial ACUITY: 1 day PAIN SCORE: 2/10 LOCATION: chest Center FINDINGS: Lungs are clear. Cardiomediastinal contours are within normal limits. Moderate-sized hiatal hernia. B blas thorax is intact. CONCLUSION: 1. Moderate-sized hiatal hernia. 2. No acute cardiopulmonary disease. Jono Perez MD on February 13, 2018 at 14:38 Board Certified Radiologist. This report was verified electronically.
[2018-02-13 15:39] LABS: AUTOMATED NEUTROPHIL # 5.2 TH/MM3 (1.8-7.7); BASOPHIL % 0.5 % (0.0-2.0); EOSINOPHIL # 0.1 TH/MM3 (0-0.4); EOSINOPHIL % 1.6 % (0.0-4.0); HEMATOCRIT 42.2 % (35.0-46.0); HEMOGLOBIN 14.2 GM/DL (11.6-15.3); LYMPHOCYTE # 1.9 TH/MM3 (1.0-4.8); MEAN CELL VOLUME 85.3 FL (80.0-100.0); MEAN CORPUSCULAR HEMOGLOBIN 28.8 PG (27.0-34.0); MEAN CORPUSCULAR HGB CONC 33.7 % (32.0-36.0); MEAN PLATELET VOLUME 9.1 FL (7.0-11.0); MONOCYTE # 0.7 TH/MM3 (0-0.9); NEUT % 64.9 % (16.0-70.0); PLATELET COUNT 254 TH/MM3 (150-450); RED BLOOD COUNT 4.95 MIL/MM3 (4.00-5.30); RED CELL DISTRIBUTION WIDTH 14.6 % (11.6-17.2)
--- NOTE | 2018-02-13 15:47 | PD ---
HPI Chief Complaint: Chest Pain Time Seen by Provider: 15:32 Travel History International Travel<30 days: No Contact w/Intl Traveler<30days: No Traveled to known affect area: No History of Present Illness HPI 67-year-old female complained of chest pain. Patient states that she is having chest pain intermittent for the past 3 days. Patient states that the pain is pressure pain started on upper chest which radiated to throat. Patient denies any nausea or diaphoresis. Patient denies any palpitation. Patient states that the pain does not radiate to the back. Patient states that the pain worsening waning however never resolved completely for the past 3 days. Patient denies any coughing congestion fever chills. Patient states that she has mild intermittent headache in the back of the left-sided head, associated with chest pain for the past 3 days. Patient denies any visual change. Patient denies any neck pain. Patient denies any head injury. Patient denies any photophobia or nausea vomiting. Patient denies any history of headache in the past. Patient denies history of CAD. Patient has history hypertension and hyperlipidemia. Patient denies history of diabetes. Patient is a non-smoker. Patient has family history of heart disease and aortic aneurysm. PFSH Past Medical History Blood Disorders: No Anxiety: Yes Depression: Yes Heart Rhythm Problems: Yes (tachycardia) Cancer: Yes (breast cancer - 2016) Cardiovascular Problems: Yes (high cholesterol) High Cholesterol: Yes Chemotherapy: No Diminished Hearing: No Endocrine: Yes (parathyriod removed) Gout: Yes Genitourinary: Yes (UTI) Immune Disorder: No Musculoskeletal: No Neurologic: Yes (depression and anxiety) Psychiatric: Yes Reproductive: Yes (D&C) Respiratory: No Immunizations Current: Yes Radiation Therapy: No Thyroid Disease: Yes Menopausal: Yes Past Surgical History Other Surgery: Yes (PARATHYROID SX IN DEC 2014) Social History Alcohol Use: Yes (5x weekly) Tobacco Use: No Substance Use: No Allergies-Medications (Allergen,Severity, Reaction): Coded Allergies: No Known Allergies (Verified Adverse Reaction, Unknown, 02/13/18) Reported Meds & Prescriptions Reported Meds & Active Scripts Active Omeprazole 40 Mg Cap 40 Mg PO DAILY Reported Betamethasone Dipropionate Topical 0.05% Cream 1 Applic TOPICAL BID Ditropan (Oxybutynin Chloride) 5 Mg Tab 5 Mg PO HS Metoprolol Tartrate 25 Mg Tab 25 Mg PO BID Atorvastatin (Atorvastatin Calcium) 20 Mg Tab 20 Mg PO HS Citracal Maximum (Calcium Citrate-Vitamin D) 315-250 Mg-Unit Tab 2 Tab PO BID Tylenol (Acetaminophen) 325 Mg Tab 325 Mg PO Q6H PRN Indomethacin 50 Mg Cap 50 Mg PO TID PRN Take with food, milk, or antacids to decrease stomach adverse effects. Multi Vitamin Daily (Multiple Vitamin) 1 Tab Tab 1 Tab PO HS Sumatriptan (Sumatriptan Succinate) 50 Mg Tab 50 Mg PO ONCE PRN If a satisfactory response has not been obtained at 2 hours, a second dose may be administered Review of Systems General / Constitutional: No: Fever Eyes: No: Visual changes HENT: Positive: Headaches Cardiovascular: Positive: Chest Pain or Discomfort Respiratory: No: Shortness of Breath Gastrointestinal: No: Abdominal Pain Genitourinary: No: Dysuria Musculoskeletal: No: Pain Skin: No Rash Neurologic: No: Weakness Psychiatric: No: Depression Endocrine: No: Polydipsia Hematologic/Lymphatic: No: Easy Bruising Physical Exam Narrative GENERAL: Well-nourished, well-developed patient. SKIN: Focused skin assessment warm/dry. HEAD: Normocephalic. EYES: No scleral icterus. No injection or drainage. Pupils 2 mm equal reactive. NECK: Supple, trachea midline. No JVD or lymphadenopathy. No meningismus CARDIOVASCULAR: Regular rate and rhythm without murmurs, gallops, or rubs. RESPIRATORY: Breath sounds equal bilaterally. No accessory muscle use. GASTROINTESTINAL: Abdomen soft, non-tender, nondistended. MUSCULOSKELETAL: No cyanosis, or edema. BACK: Nontender without obvious deformity. No CVA tenderness. Neurologic exam normal. Data Data Last Documented VS Vital Signs Date Time Temp Pulse Resp B/P (MAP) Pulse Ox O2 Delivery O2 Flow Rate FiO2 02/13/18 18:08 75 22 131/83 (99) 96 Room Air 02/13/18 13:57 97.6 Orders Orders Electrocardiogram (02/13/18 14:03) Complete Blood Count With Diff (02/13/18 14:03) Basic Metabolic Panel (Bmp) (02/13/18 14:03) Ckmb (Isoenzyme) Profile (02/13/18 14:03) Troponin I (02/13/18 14:03) Chest, Pa & Lat (02/13/18 14:03) Cta Thor Abd Aorta W Iv C W3d (02/13/18 ) Labs Laboratory Tests Test 02/13/18 14:32 White Blood Count 8.0 TH/MM3 Red Blood Count 4.95 MIL/MM3 Hemoglobin 14.2 GM/DL Hematocrit 42.2 % Mean Corpuscular Volume 85.3 FL Mean Corpuscular Hemoglobin 28.8 PG Mean Corpuscular Hemoglobin Concent 33.7 % Red Cell Distribution Width 14.6 % Platelet Count 254 TH/MM3 Mean Platelet Volume 9.1 FL Neutrophils (%) (Auto) 64.9 % Lymphocytes (%) (Auto) 24.0 % Monocytes (%) (Auto) 9.0 % Eosinophils (%) (Auto) 1.6 % Basophils (%) (Auto) 0.5 % Neutrophils # (Auto) 5.2 TH/MM3 Lymphocytes # (Auto) 1.9 TH/MM3 Monocytes # (Auto) 0.7 TH/MM3 Eosinophils # (Auto) 0.1 TH/MM3 Basophils # (Auto) 0.0 TH/MM3 CBC Comment DIFF FINAL Differential Comment Blood Urea Nitrogen 16 MG/DL Creatinine 1.15 MG/DL Random Glucose 101 MG/DL Calcium Level 9.2 MG/DL Sodium Level 141 MEQ/L Potassium Level 3.9 MEQ/L Chloride Level 107 MEQ/L Carbon Dioxide Level 27.9 MEQ/L Anion Gap 6 MEQ/L Estimat Glomerular Filtration Rate 47 ML/MIN Total Creatine Kinase 63 U/L Troponin I LESS THAN 0.02 NG/ML MDM Medical Decision Making Medical Screen Exam Complete: Yes Emergency Medical Condition: Yes Interpretation(s) 1659 PM. CBC within normal limits. BMP within normal limits. Creatinine 1.15. Cardiac enzymes are normal. 1836 PM. Last Impressions Chest X-Ray 02/13/18 1403 Signed Impressions: Service Date/Time: Tuesday, February 13, 2018 14:14 - CONCLUSION: 1. Moderate-sized hiatal hernia. 2. No acute cardiopulmonary disease. Jono Perez MD Aorta CTA 02/13/18 0000 Signed Impressions: Service Date/Time: Tuesday, February 13, 2018 17:20 - CONCLUSION: 1. Negative for aortic dissection or aneurysm. 2. Moderate visible plaque in the left anterior descending coronary artery. 3. Moderate size hiatal hernia. Colonic diverticulosis. Tobin King MD 1837 PM. CBC within normal limits. Creatinine 1.15. Cardiac enzymes are normal. Differential Diagnosis Differential diagnosis including musculoskeletal, angina, PR, PE, pneumothorax. Narrative Course 67-year-old female with chest pain intermittent and left-sided headache. Patient will be admitted to the chest pain center. Diagnosis Primary Impression: Chest pain Qualified Codes: R07.9 - Chest pain, unspecified Admitting Information Admitting Physician Requests: Observation Eloy Estes MD Feb 13, 2018 15:47
[2018-02-13] MEDS ORDERED: OXYB5TAB8 PO (16:01)
[2018-02-13] MEDS ORDERED: ATOR20TA15 PO (16:01)
[2018-02-13] MEDS ORDERED: CITRTAB11 PO (16:01)
[2018-02-13] MEDS ORDERED: BETA0.052 TOPICAL (16:01)
[2018-02-13] MEDS ORDERED: METO25TA3 PO (16:01)
[2018-02-13 16:25] LABS: TROPONIN I LESS THAN 0.02 NG/ML (0.02-0.05)
[2018-02-13 16:44] LABS: BICARBONATE 27.9 MEQ/L (21.0-32.0); BLOOD UREA NITROGEN 16 MG/DL (7-18); CALCIUM 9.2 MG/DL (8.5-10.1); CHLORIDE 107 MEQ/L (98-107); CREATININE 1.15 MG/DL (0.50-1.00); GLOMERULAR FILTRATION RATE 47 ML/MIN (>89); GLUCOSE,RANDOM 101 MG/DL (74-106); SODIUM (NA) 141 MEQ/L (136-145)
--- NOTE | 2018-02-13 18:28 | RADRPT ---
EXAM DATE/TIME: 02/13/2018 17:20 [facility] COMPARISON: No previous studies available for comparison. INDICATIONS : Chest discomfort. IV CONTRAST: 75 cc Omnipaque 350 (iohexol) IV RADIATION DOSE: 9.41 CTDIvol (mGy) MEDICAL HISTORY : Cardiovascular disease. Hypertension. Carcinoma, breast. SURGICAL HISTORY : Mastectomy, bilateral. ENCOUNTER: Initial ACUITY: 1 day PAIN SCALE: 5/10 LOCATION: Bilateral abdomen TECHNIQUE: Volumetric scanning was performed using a multi-row detector CT scanner. The data was post processed with a variety of visualization algorithms including full volume maximum intensity projection, multi -planar sliding thin slab reformation, curved planar reformation, and surface rendering techniques. Using automated exposure control and adjustment of the mA and/or kV according to patient size, radiat ion dose was kept as low as reasonably achievable to obtain optimal diagnostic quality images. DICOM format image data is available electronically for review and comparison. FINDINGS: There is no thoracic or abdominal aortic aneurysm or dissection. There is moderate plaque in the left anterior descending artery. There is dependent atelectasis in the lungs and areas of linear atelectasis or scarring. No pleural o r pericardial effusion. Moderate size hiatal hernia. No acute findings in the liver, spleen, adrenals, kidneys or pancreas. 3 mm nonobstructing left renal calculus. Proximal celiac, superior mesenteric and intramesenteric arteries are patent. Colonic diverticula noted without diverticulitis. CONCLUSION: 1. Negative for aortic dissection or aneurysm. 2. Moderate visible plaque in the left anterior descending coronary artery. 3. Moderate size hiatal hernia. Colonic diverticulosis. Tobin King MD on February 13, 2018 at 18:20 Board Certified Radiologist. This report was verified electronically.
[2018-02-13] MEDS ORDERED: SODIUM CHLORIDE 0.9% FLUSH 10 ML FLUSH IV FLUSH PRN (19:00)
[2018-02-13] MEDS ORDERED: ONDANSETRON HCL 4 MG/2 ML VIAL IV PUSH PRN (19:00)
[2018-02-13] MEDS ORDERED: ACETAMINOPHEN 500 MG CPLT PO PRN (19:00)
[2018-02-13] MEDS ORDERED: IOHEXOL 350 MG/ML 10 ML VIAL (for RAD DIAG) IVCONTRAST ONE (19:01)
[2018-02-13 19:51] LABS: TROPONIN I LESS THAN 0.02 NG/ML (0.02-0.05)
[2018-02-13] MEDS: SODIUM CHLORIDE 0.9% FLUSH 10 ML FLUSH IV FLUSH SCH (21:00)
[2018-02-13] MEDS ORDERED: METOPROLOL TARTRATE 25 MG TAB PO ONE (22:15)
[2018-02-13 22:30] LABS: TROPONIN I LESS THAN 0.02 NG/ML (0.02-0.05)
[2018-02-14 00:27] VITALS: BP 109/68; PULSE 76; RESP 17; TEMP 97.8; O2SAT 95
[2018-02-14 04:10] VITALS: BP 115/81; PULSE 77; RESP 16; TEMP 98.3; O2SAT 95
[2018-02-14] MEDS ORDERED: NITROGLYCERIN 0.4 MG SL 25 TABS/BTL SL PRN (07:30)
[2018-02-14 07:39] VITALS: BP 164/82; PULSE 80; RESP 18; TEMP 97.4; O2SAT 98
[2018-02-14 08:00] VITALS: PULSE 75
--- NOTE | 2018-02-14 08:19 | HHI.HP ---
HPI Primary Care Physician [facility]-TORIN Mclaughlin Chief Complaint Chest heaviness History of Present Illness 67-year-old female with history of hypertension and hyperlipidemia presents to emergency room for further evaluation of chest heaviness. Onset 3-4 days ago. Described as "a lump in my throat." Radiated to right anterior chest described as a "wave." Duration of waves with last seconds followed with chest heaviness for approximately 30 minutes. No precipitating or relieving factors. Yesterday "waves of pressure" began radiating to left anterior chest. Accompanying symptoms included "left ear clicking" and headache "on top of head." Headache not described as worse headache in life, duration lasted minutes. No associated symptoms of nausea, vomiting, dyspnea, or diaphoresis. Denies similar pain in the past. Yesterday's episodes became more frequent and severe therefore came to the ER for further evaluation of chest pain. Initially felt discomfort made and related to acid reflux, try taking bicarb without relief. Dr. Herrera is her dry food products mixer. Follows with Dr. Herrera for hypertension and hyperlipidemia, denying any known coronary artery disease or cardiac issues. Review of Systems General: No fatigue,weakness, fever, chills, recent illness, or change in appetite. Has been her general state of health. HEENT: Headache resolved quickly, history of migraines, no further headaches, no vision changes, no nasal congestion or drainage, no dysphasia CV: As stated above. Denies every having any chest pain per say, described discomfort as pressure. RESP: No SOB, cough, wheeze, or recent upper respiratory infection. GI: No nausea, vomiting, bowel changes, diarrhea, constipation, pain, distention , melena, or blood in the stool. : No dysuria, urgency, frequency EXT: No lower leg edema, no paraesthesias MS: No discomfort, injury, trauma, or change in ROM NEURO: No change in memory, difficulty with balance, LOC, motor/sensory deficits PSYCH: No anxiety, depression, suicidal ideation SKIN: History of eczema, currently prescribed daily ointment. No concerning lesions Past Family Social History Allergies: Coded Allergies: No Known Allergies (Verified Adverse Reaction, Unknown, 02/13/18) Past Medical History Hyperlipidemia, hypertension, gout, GERD, eczema, breast cancer (10/20-declined chemotherapy, states radiation not required, took Arimidex for awhile, stopped secondary to side effects) Past Surgical History Parathyroid removed (2014), bilateral mastectomy (2015) Reported Medications Reported Meds & Active Scripts Active Omeprazole 40 Mg Cap 40 Mg PO DAILY Reported Betamethasone Dipropionate Topical 0.05% Cream 1 Applic TOPICAL BID Ditropan (Oxybutynin Chloride) 5 Mg Tab 5 Mg PO HS Metoprolol Tartrate 25 Mg Tab 25 Mg PO BID Atorvastatin (Atorvastatin Calcium) 20 Mg Tab 20 Mg PO HS Citracal Maximum (Calcium Citrate-Vitamin D) 315-250 Mg-Unit Tab 2 Tab PO BID Tylenol (Acetaminophen) 325 Mg Tab 325 Mg PO Q6H PRN Indomethacin 50 Mg Cap 50 Mg PO TID PRN Take with food, milk, or antacids to decrease stomach adverse effects. Multi Vitamin Daily (Multiple Vitamin) 1 Tab Tab 1 Tab PO HS Sumatriptan (Sumatriptan Succinate) 50 Mg Tab 50 Mg PO ONCE PRN If a satisfactory response has not been obtained at 2 hours, a second dose may be administered Active Ordered Medications Current Medications Medications (Trade) Dose Ordered Sig/Brigette Route Start Time Stop Time Status Last Admin (NS Flush) 2 ml UNSCH PRN IV FLUSH 02/13/18 19:00 (NS Flush) 2 ml BID IV FLUSH 02/13/18 21:00 (Tylenol) 500 mg Q4H PRN PO 02/13/18 19:00 (Zofran Inj) 4 mg Q6H PRN IV PUSH 02/13/18 19:00 (Lopressor) 25 mg BID PO 02/14/18 09:00 (Nitrostat Sl) 0.4 mg Q5M PRN SL 02/14/18 07:30 (Aspirin) 325 mg DAILY PO 02/14/18 09:00 Family History No early onset cardiovascular disease. Oemfry-BOGY-og age 72, Htufjd-AVCY-oq age 80, Brother CABG-at age 68 also with valve replacement. Social History Known hypertension hyperlipidemia. No known coronary artery disease or diabetes. Lifelong non-smoker. Denies any alcohol or illegal drug use. . Endorses an active lifestyle walking daily. Past cardiac testing No recent cardiac testing, stating last stress testing "many years ago." Patient's dry food products mixer is Dr. HerreraShahzad Prajapati medical records indicate Holter monitor completed June 2017. Patient does not remember events leading to Holter monitor evaluation, but remembers this is time she began following with a dry food products mixer. Physical Exam Vital Signs Vital Signs Date Time Temp Pulse Resp B/P (MAP) Pulse Ox O2 Delivery O2 Flow Rate FiO2 02/14/18 07:39 97.4 80 18 164/82 (109) 98 02/14/18 04:10 98.3 77 16 115/81 (92) 95 02/14/18 00:27 97.8 76 17 109/68 (82) 95 02/13/18 20:55 98.2 90 17 137/84 (101) 96 02/13/18 20:29 02/13/18 20:00 82 16 136/80 (98) 96 Room Air 02/13/18 19:00 76 16 151/82 (105) 95 Room Air 02/13/18 18:08 75 22 131/83 (99) 96 Room Air 02/13/18 15:44 72 19 137/74 (95) 99 Room Air 02/13/18 15:42 74 22 179/97 (124) 99 Room Air 02/13/18 13:57 97.6 82 17 176/108 (130) 98 Physical Exam GENERAL: Alert WN, WD, NAD, pleasant, moderately obese, elderly, female HEAD: NC, AT EYES: Sclera clear, conjunctiva without injection ENT: Mucous membranes pink and moist, no nasal discharge or bleeding CV: RRR, without murmur, rub, gallop, no JVD, S1-S2 no S3-S4. RESP: Clear lungs throughout bilateral, no crackles, wheeze, rhonchi, symmetrical chest rise, nonlabored, able to speak in full sentences ABD: Soft, NT, ND, no masses, positive bowel tones EXT: Pulses +2x4, trace bilateral lower dependent edema MS: Normal tone x4 extremities, no obvious deformities, full range of motion NEURO: CN II through CN XII grossly intact, motor strength 5/5 PSYCH: A+O x3, pleasant affect, appropriate speech, mood, insight and judgment SKIN: Normal turgor, normal texture, multiple eczematous lesions noted on arms, shoulder, back Laboratory Laboratory Tests Test 02/13/18 14:32 02/13/18 19:05 02/13/18 22:01 White Blood Count 8.0 Red Blood Count 4.95 Hemoglobin 14.2 Hematocrit 42.2 Mean Corpuscular Volume 85.3 Mean Corpuscular Hemoglobin 28.8 Mean Corpuscular Hemoglobin Concent 33.7 Red Cell Distribution Width 14.6 Platelet Count 254 Mean Platelet Volume 9.1 Neutrophils (%) (Auto) 64.9 Lymphocytes (%) (Auto) 24.0 Monocytes (%) (Auto) 9.0 Eosinophils (%) (Auto) 1.6 Basophils (%) (Auto) 0.5 Neutrophils # (Auto) 5.2 Lymphocytes # (Auto) 1.9 Monocytes # (Auto) 0.7 Eosinophils # (Auto) 0.1 Basophils # (Auto) 0.0 CBC Comment DIFF FINAL Differential Comment Blood Urea Nitrogen 16 Creatinine 1.15 Random Glucose 101 Calcium Level 9.2 Sodium Level 141 Potassium Level 3.9 Chloride Level 107 Carbon Dioxide Level 27.9 Anion Gap 6 Estimat Glomerular Filtration Rate 47 Total Creatine Kinase 63 53 55 Troponin I LESS THAN 0.02 LESS THAN 0.02 LESS THAN 0.02 Result Diagram: 02/13/18 1432 02/13/18 1432 Imaging Last 48 hours Impressions Chest X-Ray 02/13/18 1403 Signed Impressions: Service Date/Time: Tuesday, February 13, 2018 14:14 - CONCLUSION: 1. Moderate-sized hiatal hernia. 2. No acute cardiopulmonary disease. Jono Perez MD Aorta CTA 02/13/18 0000 Signed Impressions: Service Date/Time: Tuesday, February 13, 2018 17:20 - CONCLUSION: 1. Negative for aortic dissection or aneurysm. 2. Moderate visible plaque in the left anterior descending coronary artery. 3. Moderate size hiatal hernia. Colonic diverticulosis. Tobin King MD Course EKG Sinus rhythm, no ST T-segment changes Caprini VTE Risk Assessment Caprini VTE Risk Assessment: Mod/High Risk (score >= 2) Caprini Risk Assessment Model Point Value = 1 Point Value = 2 Point Value = 3 Point Value = 5 Age 41-60 Minor surgery BMI > 25 kg/m2 Swollen legs Varicose veins or History of unexplained or recurrent spontaneous Oral contraceptives or hormone replacement Sepsis (< 1 month) Serious lung disease, including pneumonia (< 1 month) Abnormal pulmonary function Acute myocardial infarction Congestive heart failure (< 1 month) History of inflammatory bowel disease Medical patient at bed rest Age 61-74 Arthroscopic surgery Major open surgery (> 45 min) Laparoscopic surgery (> 45 min) Malignancy Confined to bed (> 72 hours) Immobilizing plaster cast Central venous access Age >= 75 History of VTE Family history of VTE Factor V Leiden Prothrombin [id number] Lupus anticoagulant Anticardiolipin antibodies Elevated serum homocysteine Heparin-induced thrombocytopenia Other congenital or acquired thrombophilia Stroke (< 1 month) Elective arthroplasty Hip, pelvis, or leg fracture Acute spinal cord injury (< 1 month) Prophylaxis Regimen Total Risk Factor Score Risk Level Prophylaxis Regimen 0-1 Low Early ambulation 2 Moderate Order ONE of the following: *Sequential Compression Device (SCD) *Heparin 5000 units SQ BID 3-4 Higher Order ONE of the following medications: *Heparin 5000 units SQ TID *Enoxaparin/Lovenox 40 mg SQ daily (WT < 150 kg, CrCl > 30 mL/min) *Enoxaparin/Lovenox 30 mg SQ daily (WT < 150 kg, CrCl > 10-29 mL/min) *Enoxaparin/Lovenox 30 mg SQ BID (WT < 150 kg, CrCl > 30 mL/min) AND/OR *Sequential Compression Device (SCD) 5 or more Highest Order ONE of the following medications: *Heparin 5000 units SQ TID (Preferred with Epidurals) *Enoxaparin/Lovenox 40 mg SQ daily (WT < 150 kg, CrCl > 30 mL/min) *Enoxaparin/Lovenox 30 mg SQ daily (WT < 150 kg, CrCl > 10-29 mL/min) *Enoxaparin/Lovenox 30 mg SQ BID (WT < 150 kg, CrCl > 30 mL/min) AND *Sequential Compression Device (SCD) Assessment and Plan Assessment and Plan #1 Atypical chest pain-chest pain center. Ruled out with 3 sets of EKGs, cardiac enzymes, monitor on telemetry overnight. Seen and evaluated by Dr. Keren Herrera. Symptoms atypical for cardiac, however due to multiple risk factors recommend further cardiac stress testing. States she is able to walk on treadmill, therefore will complete nuclear exercise stress test this a.m. If unremarkable, plans will be discharged home with follow-up with her PCP. Patient is agreeable to plan of care. #2 History of hypertension-continue Toprol #3 History of hyperlipidemia-continue atorvastatin #4 History of GERD-continue omeprazole, discussed findings of a moderate hiatal hernia on scans completed in ER. Reports will be given to her upon discharge for follow-up with her PCP. [id number] Dr. Herrera discussed Lexiscan results in length with patient and . Continue metoprolol and atorvastatin, adding amlodipine 2.5mg and aspirin 81 mg daily. Lab order to complete lipid panel and CMP given upon discharge. Follow up 10-[address] Herrera in office. Vilma Burk Feb 14, 2018 08:19
[2018-02-14] MEDS: SODIUM CHLORIDE 0.9% FLUSH 10 ML FLUSH IV FLUSH SCH (09:00)
[2018-02-14] MEDS ORDERED: CALCIUM/VITAMIN D 250 MG/125 U TAB PO SCH (09:00)
[2018-02-14] MEDS ORDERED: ASPIRIN 325 MG TAB PO SCH (09:00)
[2018-02-14] MEDS ORDERED: PANTOPRAZOLE SOD 40 MG DELAYED RELEASE TAB PO SCH (09:00)
[2018-02-14] MEDS ORDERED: METOPROLOL TARTRATE 25 MG TAB PO SCH (09:00)
[2018-02-14 11:15] VITALS: BP_SYST 124; BP_SYST 98; BP_DIAS 58; BP_DIAS 73; PULSE 66; PULSE 97; RESP 18; RESP 20; TEMP 97.5; O2SAT 93; O2SAT 94
--- NOTE | 2018-02-14 12:39 | RADRPT ---
EXAM DATE/TIME: 02/14/2018 10:26 [place] COMPARISON: No previous studies available for comparison. INDICATIONS : Chest pain. Angina DOSE: 27.3 mCi Tc99m Myoview at stress 8.6 mCi Tc99m Myoview at rest REST HEART RATE: 93 BPM TARGET HEART RATE: 130 BPM MAX HEART RATE: 139 BPM REST BLOOD PRESSURE: 132/80 mmHg MAX BLOOD PRESSURE: 144/88 mmHg EJECTION FRACTION: > 70% MEDICAL HISTORY : Hypertension. Carcinoma, breast. SURGICAL HISTORY : None. ENCOUNTER: Initial ACUITY: 3 days PAIN SCALE: 4/10 LOCATION: Bilateral chest TECHNIQUE: The patient underwent upright treadmill exercise in the chest pain center. Continuous ECG tracing wa s monitored during stress. Gated SPECT imaging was performed after stress, and conventional SPECT im aging was performed at rest. The examination was performed on a SPECT/CT scanner, both attenuation-c orrected and non-corrected datasets were reviewed. FINDINGS: DISTRIBUTION: The maximum perfused segment at stress is in the anterior wall. PERFUSION STUDY: There is decreased activity seen at the inferior aspect of the heart on the stress images compared to the rest images in the order of 30%. No other potential areas of ischemia are seen. GATED STUDY: There is intact wall motion and thickening without hypokinetic or dyskinetic segments. CONCLUSION: SPECT ischemia at the mid and basal portions of the inferior wall. RISK CATEGORY: Intermediate (1-3% Annual Mortality Rate) Terry Acevedo MD on February 14, 2018 at 12:34 Board Certified Radiologist. This report was verified electronically.
[2018-02-14 16:01] VITALS: BP 104/62; PULSE 82; RESP 18; TEMP 97.6; O2SAT 95
--- NOTE | 2018-02-14 17:55 | HHI.DCPOC ---
Discharge Care Plan Diagnosis: (1) Atypical chest pain (2) Hyperlipidemia Goals to Promote Your Health * To prevent worsening of your condition and complications * To maintain your health at the optimal level Directions to Meet Your Goals Take your medications as prescribed Follow your dietary instruction Follow activity as directed Keep your appointments as scheduled Take your immunizations and boosters as scheduled If your symptoms worsen call your PCP, if no PCP go to Urgent Care Center or Emergency Room Smoking is Dangerous to Your Health. Avoid second hand smoke Call the 24-hour hour crisis hotline for domestic abuse at Vilma Burk Feb 14, 2018 17:55
[2018-02-14] MEDS ORDERED: ASPI-516 CHEW (17:56)
[2018-02-14] MEDS ORDERED: AMLO2.5T PO (17:56)
--- NOTE | 2018-02-14 17:57 | TR ---
Date Performed: 02/14/2018 Time Performed: 11:03:33 DOCTOR: Keren Herrera DRUG LIST: CLINICAL HISTORY: REASON FOR TEST: Chest pain REASON FOR ENDING: OBSERVATION: CONCLUSION: Nick protocol complete. Stopped sec to exceeding target heart rate and leg fatigue. Maximum CG=890 Target HR Achieved=91.0% Maximum YC=776/80. No reprod chest discomfort. Rare PAC. St segment upsloping, slighlty horizontial inferior leads at peak, however st segments are nondiagnostic . Good exercise tolerance. Normal bp response. Recovery quick and unremarkable. Nuclear images dariusz bolaños COMMENTS: No ischemia
--- NOTE | 2018-02-14 17:59 | EKG ---
Date Performed: 02/13/2018 Time Performed: 22:12:34 PTAGE: 67 years EKG: Sinus rhythm NORMAL ECG Since PREVIOUS TRACING , no significant change noted PREVIOUS TRACIN02/13/2018 19.04 DOCTOR: Keren Herrera Interpretating Date/Time 02/14/2018 17:58:26
--- NOTE | 2018-02-14 18:00 | EKG ---
Date Performed: 02/13/2018 Time Performed: 19:04:02 PTAGE: 67 years EKG: Sinus rhythm NORMAL ECG Since PREVIOUS TRACING , no significant change noted PREVIOUS TRACIN02/13/2018 14.28 DOCTOR: Keren Herrera Interpretating Date/Time 02/14/2018 17:58:44
--- NOTE | 2018-02-14 18:00 | EKG ---
Date Performed: 02/13/2018 Time Performed: 14:28:17 PTAGE: 67 years EKG: Sinus rhythm NORMAL ECG Since PREVIOUS TRACING , no significant change noted PREVIOUS TRACIN06/28/2017 13.11 DOCTOR: Keren Herrera Interpretating Date/Time 02/14/2018 17:59:08
[2018-02-14] MEDS ORDERED: ATORVASTATIN 20 MG TAB PO SCH (21:00)
[2018-02-14] MEDS ORDERED: MULTIVITAMIN TAB PO SCH (21:00)
== END 2018-02-14 20:31 | disposition home or self-care (01) ==
LOC: NEPC 13:19 → NEDA 18:49 → NEPGCP 20:35
PROVIDERS: ADMIT Internal Medicine Cardiovascular Disease; ATTEND Internal Medicine Cardiovascular Disease
DX: R07.89 Other chest pain (principal); R51 Headache; I10 Essential (primary) hypertension; E78.00 Pure hypercholesterolemia, unspecified; K21.9 Gastro-esophageal reflux disease without esophagitis; K44.9 Diaphragmatic hernia without obstruction or gangrene; K57.90 Diverticulosis of intestine, part unspecified, without perforation or abscess without bleeding; F41.9 Anxiety disorder, unspecified; F32.9 Major depressive disorder, single episode, unspecified; Z85.3 Personal history of malignant neoplasm of breast; Z90.13 Acquired absence of bilateral breasts and nipples
CPT/HCPCS: 71046; 71275; 74174; 78452; 80048; 82550; 84484; 85025; 93005; 93017; 99285; A9502; G0378; Q9967